=== PATIENT | male | born 1945 | race Caucasian/White ===

== ENCOUNTER → 2016-06-26 | Day surgery (SDC) | payer MEDICARE ==
[~2016-06-26] MED LIST: LACTATED RINGER'S 1000 ML INJ 1,000 ML ONE; PROPOFOL 100 MG/10 ML INJ IV ONE
--- NOTE | 2016-06-26 14:36 | GIPROC ---
[facility] [address] [facility] [facility], [address] EGD PROCEDURE REPORT EXAM DATE: 06/26/2016 PATIENT NAME: Wilber Cabrera MR #: [id number] BIRTHDATE: 1945 ATTENDING: Aneta Cervantes MD ORDER #: [id number] EVENT PLANNING INTERN: Mary Arango RN STATUS: outpatient INDICATIONS: The patient is a 70 yr old male here for an EGD due to diarrhea, abdominal pain PROCEDURE PERFORMED: EGD w/ biopsy MEDICATIONS: None and Per Anesthesia. TOPICAL ANESTHETIC: none CONSENT: The patient understands the risks and benefits of the procedure and understands that these risks include, but are not limited to: sedation, allergic reaction, infection, perforation and/or bleeding. Alternative means of evaluation and treatment include, among others: physical exam, x-rays, and/or surgical intervention. The patient elects to proceed with this endoscopic procedure. medical equipment was checked for proper function. Hand hygiene and appropriate measures for infection prevention was taken. After the risks, benefits and alternatives of the procedure were thoroughly explained, Informed consent was verified, confirmed and timeout was successfully executed by the treatment team. The patient was anesthetized with topical anesthesia and the EC-3890Li ([id number]) endoscope was introduced through the mouth and advanced to the second portion of the duodenum. Retroflexed views revealed a hiatal hernia The gastroscope was then slowly withdrawn and removed. Duodenum normal-biopsy gastritis antrum-biopsy esophagitis distal esophagus biopsy. ADVERSE EVENTS: There were no complications. IMPRESSIONS: 1. Duodenum normal-biopsy gastritis antrum-biopsy esophagitis distal esophagus biopsy 2. Retroflexed views revealed a hiatal hernia RECOMMENDATIONS: 1. Await biopsy results. Biopsy results will not be ready for 7-10 days. If you don't hear from us in two weeks, call our office for biopsy results. 2. Anti-reflux regimen 3. Continue PPI 4. Avoid NSAIDS PATIENT CONDITION: stable DISPOSITION: Home REPEAT EXAM: EGD pending biopsy results Aneta Cervantes MD eSigned: Aneta Cervantes MD 06/26/2016 2:35 PM cc: Marilynn Billings [facility] Jia Kimble M.D. PATIENT NAME: Wilber Cabrera MR#: [id number]
--- NOTE | 2016-06-26 14:39 | GIPROC ---
[facility] [address] [facility], [address] COLONOSCOPY PROCEDURE REPORT EXAM DATE: 06/26/2016 PATIENT NAME: Wilber Cabrera MR #: [id number] BIRTHDATE: 1945 ENDOSCOPIST: Aneta Cervantes MD ORDER #: [id number] [employer]ILD[employer]ERIALS DESIGNER: Mary Arango RN STATUS: outpatient INDICATIONS: The patient is a 70 yr old male here for a colonoscopy due to diarrhea, abdominal pain, history of polyps PROCEDURE PERFORMED: Colonoscopy with biopsy MEDICATIONS: None and Per Anesthesia. PREP QUALITY: good PREP TYPE:Magnesium Citrate ESTIMATED BLOOD LOSS: None CONSENT: The patient understands the risks and benefits of the procedure and understands that these risks include, but are not limited to: sedation, allergic reaction, infection, perforation and/or bleeding. Alternative means of evaluation and treatment include, among others: physical exam, x-rays, and/or surgical intervention. The patient elects to proceed with this endoscopic procedure. medical equipment was checked for proper function. Hand hygiene and appropriate measures for infection prevention was taken. After the risks, benefits and alternatives of the procedure were thoroughly explained, Informed consent was verified, confirmed and timeout was successfully executed by the treatment team. A digital exam revealed external hemorrhoids The EC-3890Li ([id number]) and EG-[id number] ([id number]) endoscope was introduced through the anus and advanced to the cecum, which was identified by both the appendix and ileocecal valve. The instrument was then slowly withdrawn as the colon was fully examined. COLON FINDINGS: Diverticulosis sigmoid,descending random biopsies from ascending and descending colon diminutive polyps rectosigmoid-biopsy. Retroflexed views revealed internal hemorrhoids and Retroflexed views revealed small internal hemorrhoids The scope was then completely withdrawn from the patient and the procedure terminated. PROCEDURE WITHDRAWAL TIME:6minutes ADVERSE EVENTS: There were no complications. IMPRESSIONS: 1. Diverticulosis sigmoid,descending random biopsies from ascending and descending colon diminutive polyps rectosigmoid-biopsy 2. Retroflexed views revealed internal hemorrhoids 3. Retroflexed views revealed small internal hemorrhoids 4. Revealed external hemorrhoids RECOMMENDATIONS: 1. Await biopsy results. Biopsy results will not be ready for 7-10 days. If you don't hear from us in two weeks, call our office for results. 2. Benefiber 2 tsp daily 3. Probiotics from any [facility] or [employer] food store 4. Yearly rectal exams 5. Trial of cholestyramine 4 gm po bid RECALL: Colonoscopy, pending biopsy results Aneta Cervantes MD eSigned: Aneta Cervantes MD 06/26/2016 2:38 PM cc: Marilynn Billings [facility] Jia and Demario Kimble M.D. PATIENT NAME: Wilber Cabrera MR#: [id number]
== END | disposition home or self-care (01) ==
LOC: ESDC 11:18
PROVIDERS: ATTEND Internal Medicine Gastroenterology
DX: R19.7 Diarrhea, unspecified (principal); R10.9 Unspecified abdominal pain; Z86.010 Personal history of colon polyps; K64.4 Residual hemorrhoidal skin tags; K57.90 Diverticulosis of intestine, part unspecified, without perforation or abscess without bleeding; D12.7 Benign neoplasm of rectosigmoid junction; K44.9 Diaphragmatic hernia without obstruction or gangrene; K29.70 Gastritis, unspecified, without bleeding; K20.9 Esophagitis, unspecified
CPT/HCPCS: 00740; 00810; 43239; 45380; 88305; 88312; J3010; J7120

== ENCOUNTER → 2016-11-23 | Day surgery (SDC) | payer MEDICARE ==
[~2016-11-23] VITALS: Ht 177.8 cm; Wt 112.3 kg
[~2016-11-23] MED LIST changes: +ACETAMINOPHEN 325 MG TAB ONE; +ALLE10TA PO; +ALPR.5 PO; +ASPI81CH CHEW; +ATOR10TA15 PO; +CARV12.52 PO; +DILT0.05 PO; +FLUO40CA PO; +FOLI1TAB6 PO; +FURO40TA PO; +HYALURONIDASE/LIDOCAINE/EPINEPHRINE/BUPIVACAINE 6 ML SYR RIGHT EYE ONE; -LACTATED RINGER'S 1000 ML INJ 1,000 ML ONE; +LIDOCAINE HCL 1% PF 30 ML VIAL ONE; +LOSA100T PO; +METF500T PO; +METH2.5T PO; +OCUVTAB PO; +OMEP20TA PO; +PANT40TA3 PO; +POTA-163 PO; +PROPARACAINE HCL 0.5% OPHT SOLN 15 ML BTL RIGHT EYE ONE; -PROPOFOL 100 MG/10 ML INJ IV ONE; +PROPOFOL 200 MG/20 ML AMP ONE; +SODIUM CHLORID 0.9% 500 ML INJ 500 ML ONE; +TOBRAMYCIN/DEXAMETHASONE OPTH OINT 3.5 GM TUBE ONE; +VITA2000 PO; +VITA50TA30 PO; +XARE15TA PO
[2016-11-23] MEDS: CYCLOPENTOLATE HCL 1% OPHT SOLN 2 ML BTL RIGHT EYE SCH ×4 (08:05→08:20)
[2016-11-23] MEDS: TROPICAMIDE 1% OPHT SOLN 15 ML BTL RIGHT EYE SCH ×4 (08:05→08:20)
[2016-11-23] MEDS: PHENYLEPHRINE HCL 10% OPTH SOLN 5 ML BTL RIGHT EYE SCH ×4 (08:05→08:20)
[2016-11-23] MEDS: FLURBIPROFEN 0.03% OPHT SOLN 2.5 ML BTL RIGHT EYE SCH ×4 (08:05→08:20)
[2016-11-23 08:20] VITALS: PULSE 48
[2016-11-23 09:05] VITALS: PULSE 57
--- NOTE | 2016-11-23 10:17 | MP ---
cc: ADAM SIMS M.D. [facility] #: [id number] DATE: 11/23/2016 PREOPERATIVE DIAGNOSIS: Visually significant cataract right eye. POSTOPERATIVE DIAGNOSIS: Visually significant cataract right eye. OPERATION: Phacoemulsification with posterior chamber lens implantation, right eye. SURGEON: Adam Sims MD ANESTHESIA: Retrobulbar with MAC. COMPLICATIONS: None. PROCEDURE: After informed consent was obtained, the patient was brought into the operative suite and placed on appropriate monitors by the Anesthesia Service. The patient had received a prior retrobulbar injection of local anesthetic by the Anesthesia Service in the holding area. The patient's operative eye was then prepped and draped in the usual sterile fashion. A wire lid speculum was placed. A paracentesis incision was made in the peripheral cornea with a 1 mm morgan keratome. The anterior chamber was filled with viscoelastic. The anterior chamber was then entered through a stepped, clear corneal incision using a sharp 3 mm morgan keratome. A circular tear capsulorrhexis was then made with a bent needle cystitome. Following hydrodissection of the lens nucleus with balanced saline, phacoemulsification of the nucleus was performed using a modified chopping technique. The remaining cortex was removed with irrigation/aspiration. The prior two procedures were both performed using the handpieces of the [employer] phaco unit. The capsular bag was then filled with viscoelastic. The intraocular lens was then injected into the capsular bag and positioned. The type of intraocular lens and its power can be found elsewhere in this chart. The remaining viscoelastic was then removed from the anterior chamber with the IA handpiece. The anterior chamber was reformed with balanced saline. The wound was then closed securely with stromal hydration. It was found to be watertight to an intraocular pressure of at least 30 mmHg by palpation. A small amount of balanced salt solution was then removed through the paracentesis site and the intraocular pressure at the end of the case was approximately 20 by palpation. All drapes were then removed. TobraDex ointment was then placed in the eye, which was closed beneath a semi-pressure patch dressing. The patient tolerated this procedure well and left the operating room awake and alert. The patient is to follow-up in my office in the morning. MD ROB Quiñonez/BRADY /10:00 AM /10:06 AM
[2016-11-23 10:35] VITALS: BP 164/86; PULSE 62; RESP 16; TEMP 98.1; O2SAT 95
== END | disposition home or self-care (01) ==
LOC: PHSDC 07:34
PROVIDERS: ATTEND Optometrist Occupational Vision
DX: H26.9 Unspecified cataract (principal)
CPT/HCPCS: 00142; 66984; J7040; V2632

== ENCOUNTER 2016-12-07 06:10 | Day surgery (SDC) | payer MEDICARE ==
[~2016-12-07 06:10] MED LIST changes: -ACETAMINOPHEN 325 MG TAB ONE; -ALLE10TA PO; +ASPI-516 CHEW; -ASPI81CH CHEW; -HYALURONIDASE/LIDOCAINE/EPINEPHRINE/BUPIVACAINE 6 ML SYR RIGHT EYE ONE; -LIDOCAINE HCL 1% PF 30 ML VIAL ONE; +LORA-650 PO; -OMEP20TA PO; +OMEP20TA93 PO; -PANT40TA3 PO; -PROPARACAINE HCL 0.5% OPHT SOLN 15 ML BTL RIGHT EYE ONE; -PROPOFOL 200 MG/20 ML AMP ONE; -SODIUM CHLORID 0.9% 500 ML INJ 500 ML ONE; -TOBRAMYCIN/DEXAMETHASONE OPTH OINT 3.5 GM TUBE ONE
[2016-12-07] MEDS ORDERED: INSULIN HUMAN REGULAR 1,000 UNITS/10 ML VIAL SQ PRN (06:45)
[2016-12-07] MEDS ORDERED: CHLORHEXIDINE GLUCONATE 2 % 1 PACK (2 CLOTHS) TOPICAL PRN (06:45)
[2016-12-07] MEDS ORDERED: LACTATED RINGER'S 1000 ML IV PRN (06:45)
[2016-12-07] MEDS ORDERED: SODIUM CHLORID 0.9% 500 ML IV PRN (06:45)
[2016-12-07] MEDS ORDERED: METOPROLOL TARTRATE 25 MG TAB PO PRN (06:45)
[2016-12-07] MEDS ORDERED: CHOL4POW4 PO (07:10)
[2016-12-07] MEDS ORDERED: MISCELLANEOUS NURSING INFORMATION XX PRN (09:00)
--- NOTE | 2016-12-07 16:13 | ECHRPT ---
Indication: ATRIAL FIB/FLUTTER CONCLUSIONS Normal left ventricular size and wall thickness. The left ventricular systolic function is normal wi th an estimated ejection fraction in the range of 55-60%. Left ventricular diastolic function parameters a re normal. No regonal wall motion abnormality. No left ventricular thrombus. Normal atrial septal thickness. Atrial septal aneurysm is present (benign finding). Right to left atrial level shunt is observed with agitated saline contrast administration. Structurally normal mitral valve. Mild mitral valve regurgitation. Mitral annular calcification is present. No mitral valve stenosis. BP: / HR: Rhythm: Sinus Technical Quality:Good Medications Complications There were no complications prior to, during or in recovery from the transesophag eal echocardiogram.. Proc. Components FINDINGS LEFT VENTRICLE Normal left ventricular size and wall thickness. The left ventricular systolic function is normal wi th an estimated ejection fraction in the range of 55-60%. Left ventricular diastolic function parameters a re normal. No regonal wall motion abnormality. No left ventricular thrombus. RIGHT VENTRICLE Normal right ventricular size and systolic function. LEFT ATRIUM The left atrial size is normal. RIGHT ATRIUM The right atrial size is normal. ATRIAL APPENDAGES Normal left atrial appendage size with no evidence of thrombus formation. ATRIAL SEPTUM Normal atrial septal thickness. Atrial septal aneurysm is present (benign finding). Right to left atrial level shunt is observed with agitated saline contrast administration. AORTA The aortic root and proximal ascending aorta are normal in size on limited imaging. MITRAL VALVE Structurally normal mitral valve. Mild mitral valve regurgitation. Mitral annular calcification is present. No mitral valve stenosis. AORTIC VALVE Trileaflet aortic valve. No aortic valve stenosis or regurgitation. TRICUSPID VALVE Structurally normal tricuspid valve. No tricuspid valve stenosis or regurgitation. VESSELS The inferior vena cava is normal in size. PULMONARY VALVE The pulmonary valve is not well visualized. PERICADIUM No pericardial effusion. Jorge Rees MD, FACC (Electronically Signed) Final Date:07 December 2016 16:12
== END 2016-12-07 09:35 | disposition home or self-care (01) ==
LOC: HDOC 06:10 → HDIC 06:11 → HDOC 09:35
PROVIDERS: ATTEND Internal Medicine
DX: I51.3 Intracardiac thrombosis, not elsewhere classified (principal); I34.0 Nonrheumatic mitral (valve) insufficiency; I48.91 Unspecified atrial fibrillation; I70.0 Atherosclerosis of aorta; I10 Essential (primary) hypertension; Z87.891 Personal history of nicotine dependence
CPT/HCPCS: 93312; 93320; 93325

== ENCOUNTER → 2017-02-22 | Day surgery (SDC) | payer MEDICARE ==
[~2017-02-22] VITALS: Ht 177.8 cm; Wt 109.0 kg
[~2017-02-22] MED LIST changes: -ALPR.5 PO; +CHLORHEXIDINE GLUCONATE 2 % 1 PACK (2 CLOTHS) TOPICAL PRN; +CHOL4POW4 PO; +DILT120T PO; +HYALURONIDASE/LIDOCAINE/BUPIVACAINE 5 ML SYR LEFT EYE ONE; +LACTATED RINGER'S 1000 ML IV PRN; +LIDOCAINE HCL 1% PF 30 ML VIAL ONE; -OMEP20TA93 PO; +PANT40TA3 PO; +POVIDONE IODINE 5% (ANTISEPSIS KIT) 4 APPLICATIONS EACH NARE PRN; +PROPARACAINE HCL 0.5% OPHT SOLN 15 ML BTL LEFT EYE ONE; +PROPOFOL 200 MG/20 ML AMP ONE; +SODIUM CHLORID 0.9% 500 ML IV PRN; +TOBRAMYCIN/DEXAMETHASONE OPTH OINT 3.5 GM TUBE ONE; -XARE15TA PO
[2017-02-22 07:33] VITALS: PULSE 82
[2017-02-22] MEDS: CYCLOPENTOLATE HCL 1% OPHT SOLN 2 ML BTL LEFT EYE SCH ×4 (07:36→07:51)
[2017-02-22] MEDS: PHENYLEPHRINE HCL 10% OPTH SOLN 5 ML BTL LEFT EYE SCH ×4 (07:36→07:51)
[2017-02-22] MEDS: TROPICAMIDE 1% OPHT SOLN 15 ML BTL LEFT EYE SCH ×4 (07:36→07:51)
[2017-02-22] MEDS: FLURBIPROFEN 0.03% OPHT SOLN 2.5 ML BTL LEFT EYE SCH ×4 (07:36→07:51)
[2017-02-22 08:05] VITALS: PULSE 67
[2017-02-22 09:11] VITALS: TEMP 97.5
[2017-02-22 09:33] VITALS: BP 166/86; PULSE 55; RESP 16; O2SAT 96
--- NOTE | 2017-02-23 13:52 | MP ---
cc: ADAM SIMS M.D. [facility] NUMBER: [id number] DATE OF SURGERY: 02/22/2018 PREOPERATIVE DIAGNOSIS: Visually significant cataract left eye. POSTOPERATIVE DIAGNOSIS: Visually significant cataract left eye. OPERATION: Phacoemulsification with posterior chamber lens implantation, left eye. SURGEON: Adam Sims MD ANESTHESIA: Retrobulbar with MAC. COMPLICATIONS: None. PROCEDURE: After informed consent was obtained, the patient was brought into the operative suite and placed on appropriate monitors by the Anesthesia Service. The patient had received a prior retrobulbar injection of local anesthetic by the Anesthesia Service in the holding area. The patient's operative eye was then prepped and draped in the usual sterile fashion. A wire lid speculum was placed. A paracentesis incision was made in the peripheral cornea with a 1 mm morgan keratome. The anterior chamber was filled with viscoelastic. The anterior chamber was then entered through a stepped, clear corneal incision using a sharp 3 mm morgan keratome. A circular tear capsulorrhexis was then made with a bent needle cystitome. Following hydrodissection of the lens nucleus with balanced saline, phaco-emulsification of the nucleus was performed using a modified chopping technique. The remaining cortex was removed with irrigation/aspiration. The prior two procedures were both performed using the handpieces of the [employer] phaco unit. The capsular bag was then filled with viscoelastic. The intraocular lens was then injected into the capsular bag and positioned. The type of intraocular lens and its power can be found elsewhere in this chart. The remaining viscoelastic was then removed from the anterior chamber with the IA handpiece. The anterior chamber was reformed with balanced saline. The wound was then closed securely with stromal hydration. It was found to be watertight to an intraocular pressure of at least 30 mmHg by palpation. A small amount of balanced salt solution was then removed through the paracentesis site and the intraocular pressure at the end of the case was approximately 20 by palpation. All drapes were then removed. TobraDex ointment was then placed in the eye, which was closed beneath a semi-pressure patch dressing. The patient tolerated this procedure well and left the operating room awake and alert. The patient is to follow-up in my office in the morning. ADDENDUM: After the clear corneal incisions were sealed water tight, a 4 mm limbal relaxing incision was made with a 600 micron morgan blade, centered around the inferior 90 degree meridian. MD ROB Quiñonez/agnieszka /10:24 AM /1:37 PM
== END | disposition home or self-care (01) ==
LOC: PHSDC 06:54
PROVIDERS: ATTEND Optometrist Occupational Vision
DX: H25.812 Combined forms of age-related cataract, left eye (principal)
CPT/HCPCS: 00142; 66984; J7040; V2632